=== PATIENT | female | born 1960 | race Caucasian/White ===

== ENCOUNTER 2024-10-25 09:51 | Emergency (ER) | payer OTHER ==
[~2024-10-25] VITALS: Ht 172.7 cm; Wt 67.1 kg
[2024-10-25] MEDS ORDERED: ONDANSETRON HCL/PF 4 MG/2 ML VIAL ONE (10:36)
[2024-10-25] MEDS ORDERED: MORPHINE SULFATE INJ 4 MG/ML DISP.SYRIN ONE (10:36)
[2024-10-25] MEDS: MORPHINE SULFATE INJ 2 MG/ML DISP.SYRIN IV ONE (10:39)
[2024-10-25] MEDS: ONDANSETRON HCL/PF 4 MG/2 ML VIAL IVP ONE (10:40)
[2024-10-25 10:44] LABS: BASOPHILS % (AUTO) 0.3 % (0.0-2.0); EOSINOPHILS % (AUTO) 0.2 % (0.0-6.0); HEMATOCRIT 40 % (33-45); HEMOGLOBIN 13.9 g/dL (11.5-14.8); LYMPHOCYTES # (AUTO) 0.8 K/uL (0.8-4.8); LYMPHOCYTES % (AUTO) 10.1 % (20.0-44.0); MEAN CORPUSCULAR HEMOGLOBIN 36 PG (26.0-33.0); MEAN CORPUSCULAR HGB CONC 35 g/dl (31.0-36.0); MEAN CORPUSCULAR VOLUME 104 fL (82-100); MONOCYTES # (AUTO) 0.6 K/uL (0.1-1.30); MONOCYTES % (AUTO) 7.9 % (2.0-12.0); NEUTROPHILS # (AUTO) 6.2 K/uL (1.8-8.9); NEUTROPHILS % (AUTO) 81.5 % (43.0-81.0); PLATELET COUNT (AUTO) 265 K/uL (150-450); RED BLOOD CELL COUNT(AUTO) 3.82 MIL/uL (4.0-5.2); RED CELL DISTRIBUTION WIDTH 12.1 % (11.5-15.0); WHITE BLOOD COUNT (AUTO) 7.7 K/uL (4.3-11.0)
[2024-10-25 10:56] LABS: CREATININE 0.8 mg/dL (0.6-1.3); POTASSIUM 4.2 mmol/L (3.5-5.1)
[2024-10-25 10:58] LABS: ALBUMIN 4.2 g/dL (3.4-5.0); BILIRUBIN,DIRECT 0.2 mg/dL (0.0-0.2); BILIRUBIN,TOTAL 0.8 mg/dL (0.2-1.0); TOTAL PROTEIN, SERUM 7.8 g/dL (6.4-8.2)
[2024-10-25] MEDS: IV NS 0.9% 1,000 ML BAG IV ONE (11:28)
[2024-10-25] MEDS ORDERED: IOHEXOL-300 100 ML VIAL IV ONE (11:31)
[2024-10-25] MEDS ORDERED: IV NS 0.9% 250 ML IV ONE (11:31)
[2024-10-25] MEDS ORDERED: CT SWABBABLE VALVE TRANS SET 1 EA INFUS.SET MC ONE (11:31)
[2024-10-25 12:49] LABS: APPEARANCE,URINE CLEAR (CLEAR); BILIRUBIN,URINE NEGATIVE (NEGATIVE); BLOOD, URINE NEGATIVE Ery/uL (NEGATIVE); COLOR,URINE OTHER (YELLOW); KETONES,URINE TRACE mg/dL (NEGATIVE); LEUKOCYTE ESTERASE ,URINE NEGATIVE (NEGATIVE); NITRITE, URINE NEGATIVE (NEGATIVE); PH,URINE 6.5 (5.0-8.0); PROTEIN,URINE NEGATIVE (NEGATIVE); UGLUCOSE NEGATIVE (NEGATIVE); UROBILINOGEN,URINE 0.2 EU/dL (0.2)
[2024-10-25 12:55] LABS: ADD URINE CULTURE NO; BACTERIA,URINE Rare /HPF (None Seen); RBC,URINE 0-2 /HPF (0-2); SQUAMOUS EPITHELIAL CELL,UR 0-2 /HPF (None Seen); WBC,URINE 0-2 /HPF (0-3)
[2024-10-25 12:57] LABS: INR 1.01 (0.91-1.10); PARTIAL THROMBOPLASTIN TIME 26.5 SEC (24.3-34.3); PROTHROMBIN TIME 10.7 SECS (9.2-11.1)
[2024-10-25 15:47] VITALS: BP 120/68; TEMP 98.5; O2SAT 98
== END 2024-10-25 15:48 | disposition left against medical advice (07) ==
LOC: ER 09:56
DX: S30.1XXA Contusion of abdominal wall, initial encounter (principal); E87.1 Hypo-osmolality and hyponatremia; R10.32 Left lower quadrant pain; R05.9 Cough, unspecified; X58.XXXA Exposure to other specified factors, initial encounter; Y93.89 Activity, other specified; Y92.89 Other specified places as the place of occurrence of the external cause; Y99.8 Other external cause status
CPT/HCPCS: 99285; 74177; 96374; 71045; 96361; 96375; 85025; 80048; 83690; 80076; 81001; 36415; 85730; J2270; J2405; J7030; J7050; Q9967

== ENCOUNTER 2025-07-16 16:33 | Emergency (ER) | payer OTHER ==
[~2025-07-16] VITALS: Ht 172.7 cm; Wt 68.9 kg
[2025-07-16] MEDS: ONDANSETRON HCL/PF 4 MG/2 ML VIAL IVP ONE (17:00)
[2025-07-16] MEDS: ASPIRIN EC 325 MG TABLET.DR PO ONE (17:00)
[2025-07-16] MEDS: MORPHINE SULFATE INJ 2 MG/ML DISP.SYRIN IV ONE (17:00)
[2025-07-16] MEDS ORDERED: MORPHINE SULFATE INJ 4 MG/ML DISP.SYRIN ONE (17:01)
[2025-07-16] MEDS ORDERED: ASPIRIN 325 MG TABLET ONE (17:01)
[2025-07-16] MEDS ORDERED: ONDANSETRON HCL/PF 4 MG/2 ML VIAL ONE (17:01)
[2025-07-16 17:10] VITALS: BP 155/105; TEMP 97.8; O2SAT 99
[2025-07-16] MEDS ORDERED: HEPARIN SODIUM, PORCINE 5000 UNITS/1 ML VIAL ONE (17:11)
[2025-07-16] MEDS ORDERED: HEPARIN SODIUM, PORCINE 5000 UNITS/1 ML VIAL IV ONE (17:30)
== END 2025-07-16 17:14 | disposition short-term general hospital (02) ==
LOC: ER 16:43
DX: I21.3 ST elevation (STEMI) myocardial infarction of unspecified site (principal)
CPT/HCPCS: 99291; 96374; 96375; 93005; J1644; J2270; J2405